=== PATIENT | female | born 1970 | race Caucasian/White ===

== ENCOUNTER 2018-02-24 19:43 | Emergency (ER) | payer MEDICARE, MEDICAID ==
[2018-02-24 19:58] VITALS: RESP 18
--- NOTE | 2018-02-24 20:28 | C.PDOC ---
History Of Present Illness 48 year old female presents to the ED for evaluation of headache and uncontrolled blood pressure for 3 days. Patient states she used to take Metoprolol 100 one a day and her medication was switched to Labetalol 200mg. Patient states the Labetalol made her feel like animals were crawling on her head, so she stopped taking it. She took her old dose of Metoprolol this morning without relief. Patient took [id number] headache medication ( contains active ingredients such as Tylenol, NSAIDS and caffeine), without relief. Patient denies fever, chills. Time Seen by Provider: 02/24/18 20:22 Chief Complaint (Nursing): High Blood Pressure History Per: Patient History/Exam Limitations: no limitations Onset/Duration Of Symptoms: Days (3) Current Symptoms Are (Timing): Still Present Associated Symptoms: Headache Exacerbating Factor(s): Pos: Recent Change In Medication Additional History Per: Patient Past Medical History Reviewed: Historical Data, Nursing Documentation, Vital Signs Vital Signs: Last Vital Signs Temp 98 F 02/24/18 22:34 Pulse 82 02/24/18 22:34 Resp 18 02/24/18 22:34 BP 165/84 H 02/24/18 22:34 Pulse Ox 98 02/24/18 22:36 - Medical History PMH: Anxiety, Depression, Diabetes, HTN, Hypercholesterolemia, Chronic Kidney Disease, Schizophrenia Surgical History: Tonsillectomy - [facility] Procedures INDIVID PSYCHOTHERAP NEC (03/01/14) OTHER GROUP THERAPY (03/01/14) Family History: States: Unknown Family Hx - Social History Hx Tobacco Use: No Hx Alcohol Use: No Hx Substance Use: No - Immunization History Hx Tetanus Toxoid Vaccination: No Hx Influenza Vaccination: Yes Hx Pneumococcal Vaccination: No Review Of Systems Constitutional: Positive for: Other (uncontrolled blood pressure ). Negative for: Fever, Chills Eyes: Negative for: Pain, Vision Change, Conjunctivae Inflammation ENT: Negative for: Ear Pain, Ear Discharge, Nose Pain, Nose Discharge Cardiovascular: Negative for: Chest Pain, Palpitations, Orthopnea, Paroxysmal Noc. Dyspnea Respiratory: Negative for: Cough, Shortness of Breath, Hemoptysis Gastrointestinal: Negative for: Nausea, Vomiting, Abdominal Pain Genitourinary: Negative for: Dysuria, Frequency, Incontinence Musculoskeletal: Negative for: Neck Pain, Shoulder Pain, Arm Pain Skin: Negative for: Rash Neurological: Positive for: Headache, Dizziness. Negative for: Weakness, Numbness, Incoordination Psych: Negative for: Anxiety, Depression Physical Exam - Physical Exam Appears: Non-toxic, No Acute Distress Skin: Normal Color, Warm, Dry Head: Atraumatic, Normacephalic Eye(s): bilateral: Normal Inspection, PERRL, EOMI Ear(s): Bilateral: Normal Oral Mucosa: Moist Tongue: No Normal Appearing Lips: No Normal Appearing Teeth: No Normal Dentition Gingiva: No Normal Appearing Throat: No Normal Neck: No Normal, Supple Chest: Symmetrical, No Deformity, No Tenderness Cardiovascular: Rhythm Regular, No Murmur Respiratory: Normal Breath Sounds, No Rales, No Rhonchi, No Wheezing Extremity: Normal ROM, Capillary Refill (less than 2 seconds ) Neurological/Psych: Oriented x3, Normal Speech, Normal Cognition ED Course And Treatment - Laboratory Results Result Diagrams: 02/24/18 21:02 02/24/18 21:02 ECG: Interpreted By Me, Viewed By Me ECG Rhythm: Sinus Rhythm Interpretation Of ECG: Normal Sinus Rhythm at rate 65bpm. LVH. Isolated T wave inversions in lead III. No prior EKG for comparison. NH interval 128ms. QRS duration 80ms. QT/QTc 444/461. P-R-T axes 2/-06/26 Rate From EC O2 Sat by Pulse Oximetry: 98 (on RA) Pulse Ox Interpretation: Normal Medical Decision Making Medical Decision Making: Progress: Bloodwork, urinalysis, EKG ordered and reviewed. Lactated Ringers IV, Reglan IVP, and Toradol IVP given. CBCB results are unremarkable creatinine 2.0 Urine shows 2+ protein negative RE-Evaluation: - Headache gone and feels better. - Will not change medication because patient has appointment with creative art director on the Disposition Counseled Patient/Family Regarding: Diagnosis - Disposition Referrals: Pepito Kirk APN [Advanced Practice Nurse] - Disposition: HOME/ ROUTINE Disposition Time: 22:04 Condition: GOOD Additional Instructions: return if symptoms worsen or return Forms: [employer] (Ukrainian) - Clinical Impression Clinical Impression: Headache, Abnormal blood pressure
[2018-02-24] MEDS ORDERED: Lactated Ringer's 1,000 ML IV STA (20:54)
[2018-02-24] MEDS ORDERED: Lactated Ringer's 1,000 ML ONE (21:03)
[2018-02-24 21:06] LABS: BASO # 0.1 K/uL (0.0-0.2); BASO % 0.8 % (0.0-2.0); EOS # 0.2 K/uL (0.0-0.7); EOS % 2.3 % (0.0-4.0); HEMOGLOBIN 12.8 g/dL (11.0-16.0); LYMPH # 2.2 K/uL (1.0-4.3); LYMPH % 27.6 % (20.0-40.0); MEAN CELL VOLUME 82.6 fL (81.0-99.0); MEAN CORPUSCULAR HEMOGLOBIN 28.2 pg (27.0-31.0); MEAN CORPUSCULAR HGB CONC 34.2 g/dL (33.0-37.0); MEAN PLATELET VOLUME 8.2 fL (7.2-11.7); MONO # 0.5 K/uL (0.0-0.8); NEUT # 5.1 K/uL (1.8-7.0); NEUT % 63.3 % (50.0-75.0); NRBC % 0.2 % (0.0-2.0); RBC 4.54 Mil/uL (3.80-5.20); RED CELL DISTRIBUTION WIDTH 15.2 % (11.5-14.5)
[2018-02-24 21:21] LABS: SQUAMOUS EPITHIAL < 1 /hpf (0-5); URINE BILIRUBIN NEGATIVE (NEGATIVE); URINE BLOOD NEGATIVE (NEGATIVE); URINE CLARITY Clear (Clear); URINE COLOR Colorless (YELLOW); URINE GLUCOSE (UA) NORMAL (Normal); URINE LEUKOCYTE ESTERASE NEG Leu/uL (Negative); URINE PROTEIN 2+ mg/dL (NEGATIVE); URINE UROBILINOGEN NORMAL mg/dL (0.2-1.0)
[2018-02-24 21:28] LABS: ALB/GLOB RATIO 1.2 (1.0-2.1); ALBUMIN 3.7 g/dL (3.5-5.0); CALCIUM 8.9 mg/dl (8.6-10.4)
[2018-02-24 22:35] VITALS: BP 165/84; PULSE 82; TEMP 98
[2018-02-24 22:37] VITALS: O2SAT 98
--- NOTE | 2018-02-25 21:29 | CARD ---
APPROVED REPORT Date of service: 02/24/2018 EKG Measurement Heart [id number] [id number] <Conclusion> Normal sinus rhythm Voltage criteria for left ventricular hypertrophy Abnormal ECG
== END 2018-02-24 22:34 | disposition home or self-care (01) ==
LOC: C.ER 19:43
DX: R51 Headache (principal); R03.0 Elevated blood-pressure reading, without diagnosis of hypertension
CPT/HCPCS: 80053; 81001; 84703; 85025; 85651; 93005; 96361; 96374; 96375; 99285; J1885; J2765; J7120

== ENCOUNTER 2018-06-18 20:03 | Emergency (ER) | payer MEDICARE, MEDICAID ==
[2018-06-18 20:03] VITALS: BMI 26.5
[2018-06-18 20:29] VITALS: RESP 18
--- NOTE | 2018-06-18 20:32 | C.PDOC ---
History Of Present Illness 48 year old female presents to the ED c/o right ankle pain and swelling that occurred today at home at 10:00. Patient states swelling and pain has been worsening. Patient also states she is non complaint with her blood pressure medications. Patient denies headache, visual changes, dizziness, CP, SOB, palpitations, weakness, numbness, slurred speech. Time Seen by Provider: 06/18/18 20:22 Chief Complaint (Nursing): Lower Extremity Problem/Injury History Per: Patient History/Exam Limitations: no limitations Onset/Duration Of Symptoms: Hrs (10:00) Current Symptoms Are (Timing): Still Present Recent travel outside of the [place]: No Additional History Per: Patient - Ankle/Foot Description Of Injury: Twisted Currently Unable To: Bear Weight Past Medical History Reviewed: Historical Data, Nursing Documentation, Vital Signs Vital Signs: Last Vital Signs Temp 98.9 F 06/18/18 20:13 Pulse 100 H 06/18/18 20:13 Resp 18 06/18/18 20:13 BP Pulse Ox 99 06/18/18 20:13 - Medical History PMH: Anxiety, Depression, Diabetes, HTN, Hypercholesterolemia, Chronic Kidney Disease, Schizophrenia Surgical History: Tonsillectomy - [facility] Procedures INDIVID PSYCHOTHERAP NEC (03/01/14) OTHER GROUP THERAPY (03/01/14) Family History: States: Unknown Family Hx - Social History Hx Tobacco Use: No Hx Alcohol Use: No Hx Substance Use: No - Immunization History Hx Tetanus Toxoid Vaccination: No Hx Influenza Vaccination: Yes Hx Pneumococcal Vaccination: No Review Of Systems Constitutional: Negative for: Fever, Chills Eyes: Negative for: Vision Change Cardiovascular: Negative for: Chest Pain, Palpitations Respiratory: Negative for: Shortness of Breath Gastrointestinal: Negative for: Nausea, Vomiting, Abdominal Pain Musculoskeletal: Positive for: Foot Pain Skin: Negative for: Rash Neurological: Negative for: Headache, Dizziness Physical Exam - Physical Exam Appears: Non-toxic, No Acute Distress Skin: Warm, Dry Head: Normacephalic Eye(s): bilateral: Normal Inspection Neck: Supple Chest: Symmetrical Cardiovascular: Rhythm Regular Respiratory: No Rales, No Rhonchi, No Wheezing Gastrointestinal/Abdominal: Soft, No Tenderness, No Guarding, No Rebound Back: Normal Inspection Extremity: Normal ROM, Tenderness (external malleolus slight tender ), Capillary Refill (< 2 seconds), Swelling (right ankle), Other (no crepitus) Pulses: Left Dorsalis Pedis: Normal, Right Dorsalis Pedis: Normal Neurological/Psych: Oriented x3, Normal Speech, Normal Cognition, Normal Motor, Normal Sensation Gait: Steady ED Course And Treatment O2 Sat by Pulse Oximetry: 99 (ON RA) Pulse Ox Interpretation: Normal - Other Rad ankle X-Ray: Interpreted by Me, Viewed By Me Interpretation: no fx or dislocation, soft tissue swelling Progress Note: Plan: - Right ankle X-Ray. - Catapres 0.2 mg PO. - Motrin 800 mg PO Orthopedic Time Performed: 21:48 Procedure: Splint Type: Short Location: Right Diagnosis: Sprain Location: Right, Lateral Bone: Malleolus Joints: Ankle Joint (mortisse) Capillary refill: Normal Distal Sensation: Normal Distal Motor Function: Normal Capillary Refill: Normal Compartment: Normal Distal Sensation: Normal Distal Motor Function: Normal Patient tolerated procedure: Well Disposition Counseled Patient/Family Regarding: Studies Performed, Diagnosis, Need For Followup - Disposition Referrals: Alvina Syed MD [Medical Doctor] - Surya Velasquez MD [Staff Provider] - Disposition: HOME/ ROUTINE Disposition Time: 20:22 Condition: FAIR Additional Instructions: Please take your blood pressure medication Prescriptions: Enalapril Maleate [Vasotec] 20 mg PO DAILY #15 tab hydrALAZINE [Apresoline] 25 mg PO Q8H #45 tab Naproxen [Naprosyn] 1 tab PO BID PRN #25 tab PRN Reason: Pain Instructions: Ankle Sprain (DC), High Blood Pressure (DC) Forms: [employer] (French) - Clinical Impression Clinical Impression: Right ankle sprain, Hypertension - Scribe Statement The provider has reviewed the documentation as recorded by the Scribe Dmitry Moncada All medical record entries made by the Scribe were at my direction and personally dictated by me. I have reviewed the chart and agree that the record accurately reflects my personal performance of the history, physical exam, medical decision making, and the department course for this patient. I have also personally directed, reviewed, and agree with the discharge instructions and disposition.
[2018-06-18 22:04] VITALS: BP 212/109; PULSE 81; TEMP 99; O2SAT 100
--- NOTE | 2018-06-19 08:26 | RAD ---
Date of service: 06/18/2018 PROCEDURE: Right Ankle Radiographs. HISTORY: Twisting injury. COMPARISON: None available. FINDINGS: BONES: No evidence of acute displaced fracture nor dislocation. The osseous structures intact.. JOINTS: Normal. No osteoarthritis. Ankle mortise maintained. Talar dome intact SOFT TISSUES: There is moderate lateral and mild medial soft tissue swelling. OTHER FINDINGS: None. IMPRESSION: No evidence of acute displaced fracture nor dislocation.. Moderate lateral and mild medial soft tissue swelling.
== END 2018-06-18 23:45 | disposition home or self-care (01) ==
LOC: C.ER 20:03
DX: S93.401A Sprain of unspecified ligament of right ankle, initial encounter (principal); X58.XXXA Exposure to other specified factors, initial encounter; I10 Essential (primary) hypertension